=== PATIENT | male | born 1970 | race Caucasian/White ===

== ENCOUNTER 2019-07-08 12:56 | Emergency (ER) | payer SELFPAY ==
[2019-07-08 13:18] VITALS: BP 157/78; PULSE 95; RESP 18; TEMP 36.9; O2SAT 100
[2019-07-08] MEDS: hydrOXYzine pamoate 25 MG CAPSULE PO (13:58)
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
--- NOTE | 2019-07-08 14:40 | PC.NURSE ---
spoke with Bridgett in Care Management. she gave me the Mobile Crisis outreach team number. . i spoke to Selvin at the OT, Selvin spoke directly to the patient. pt agreed to follow up by phone call with OT so they can help. pt also agreed to a safety contract. pt has been tearful. ROD Brenner at bedside.
[2019-07-08 15:22] VITALS: BP 148/91; PULSE 78; RESP 16; O2SAT 98
--- NOTE | 2019-07-08 16:24 | CM.SWNOTE ---
[facility] [employer] Consult, brief note [facility] [employer] consult placed by ED provider Jordin and received; this [facility] [employer] unable to accommodate request d/t demands of the acute care caseload and prior ED case day of 20 Encouraged ED RN and staff [phone] to arrange same day phone call and possible home visit, this person lives on [address] ED staff expected Meme to be safe to return home from ED w/ [facility] f/u; no suicidal ideation or homicidal ideation; Meme admitted to racing thoughts, anxiety, and meds given before DC home per ED RN Reina Cunningham, [facility]
== END 2019-07-08 15:26 | disposition home or self-care (01) ==
PROVIDERS: Emergency Provider Nurse Practitioner Family
DX: F41.9 Anxiety disorder, unspecified (principal); F32.9 Major depressive disorder, single episode, unspecified
CPT/HCPCS: 99283; 99284

== ENCOUNTER → 2019-08-02 11:46 | Outpatient (CLI) | payer SELFPAY ==
[2019-08-02 12:45] LABS: Appearance Urine UA CLEAR; Bilirubin Urine UA NEGATIVE (NEGATIVE); Color Urine UA YELLOW; Glucose Urine UA NEGATIVE (Negative); Ketones Urine UA TRACE (NEGATIVE); Leukocyte Esterase Urine UA NEGATIVE (NEGATIVE); Nitrite Urine UA NEGATIVE (Negative); Occult Blood Urine UA NEGATIVE (Negative); Protein Urine UA NEGATIVE (Negative); Urobilinogen Urine UA 0.2 E.U./dL (0.2)
[2019-08-02 12:53] LABS: UR Morphine/Opiate cutoff 300 Negative (Negative); Ur Creatinine Normal (Normal); Ur Specific Gravity Normal (Normal); Urine Amphetamines Negative (Negative); Urine Barbiturates Negative (Negative); Urine Benzodiazepines Negative (Negative); Urine Cocaine Negative (Negative); Urine MDMA Negative (Negative); Urine Methadone Negative (Negative); Urine Methamphetamines Negative (Negative); Urine Oxycodone Negative (Negative); Urine Phencyclidine Negative (Negative); Urine Tetrahydrocannabinol Negative (Negative); Urine Tricyclic Antidepressant Negative (Negative); Urine pH Normal (Normal)
[2019-08-02 13:06] LABS: Add Manual Diff / Slide Review NO; Basophils Absolute Auto 0 /uL (0-100); Basophils Percent Auto 0.7 % (0-2); Eosinophils Absolute Auto 0 /uL (0-450); Eosinophils Percent Auto 0.5 % (2-4); Hematocrit 45.6 % (41-53); Hemoglobin 15.9 g/dL (13.5-17.5); Lymphocytes Absolute Auto 700 /uL (1100-4500); Lymphocytes Percent Auto 16.4 % (25-40); Mean Corpuscular HGB Conc 34.9 % (30-36); Mean Corpuscular Volume 91.7 fL (80-100); Monocytes Absolute Auto 300 /uL (0-900); Monocytes Percent Auto 7.5 % (3-14); Neutrophils Absolute Auto 3100 /uL (1500-7000); Neutrophils Percent Auto 74.9 % (50-75); Platelet Count 197 X10^3/uL (150-400); Red Blood Cell Count 4.97 X10^6/uL (4.5-5.9); Red Cell Distribution Width 12.8 % (11.6-14.8); White Blood Cell Count 4.2 X10^3/uL (4.5-11.0)
[2019-08-02 13:25] LABS: Alanine Aminotransferase 30 IU/L (<50); Albumin 4.9 g/dL (3.5-5.0); Albumin Globulin Ratio 1.8 (1.0-2.8); Alkaline Phosphatase 49 U/L (38-126); Aspartate Aminotransferase 27 IU/L (17-59); BUN Creatinine Ratio 17.8 (6-22); Bilirubin Total 1.3 mg/dL (0.2-1.3); Blood Urea Nitrogen 16 mg/dL (9-20); Calcium 9.9 mg/dL (8.4-10.2); Carbon Dioxide 28 mmol/L (22-32); Chloride 103 mmol/L (98-107); Estimated Glomerular Filt Rate > 60.0 mL/min (>60); Globulin 2.8 g/dL (1.7-4.1); Glucose 122 mg/dL (70-100); HEMOLYSIS < 15 (0-50); Potassium 3.8 mmol/L (3.4-5.1); Sodium 143 mmol/L (137-145); Total Protein 7.7 g/dL (6.3-8.2)
[2019-08-02 13:39] LABS: Free T4, Direct Thyroxine 0.81 ng/dL (0.78-2.19)
[2019-08-02 13:53] LABS: Thyroid Stimulating Hormone 1.03 uIU/mL (0.47-4.68)
== END ==
PROVIDERS: Referring Provider Psychiatry & Neurology Psychiatry; Visit Provider Psychiatry & Neurology Psychiatry
DX: F33.2 Major depressive disorder, recurrent severe without psychotic features (principal)
CPT/HCPCS: 36415; 80053; 80305; 81003; 84439; 84443; 85025

== ENCOUNTER → 2019-10-31 10:33 | Outpatient (CLI) | payer OTHER, MEDICAID, SELFPAY ==
--- NOTE | 2019-10-31 | DI.US.S_ITS ---
PROCEDURE: US ABDOMEN COMPLETE INDICATIONS: LLQ PAIN TECHNIQUE: Real-time scanning was performed of the abdominal and retroperitoneal organs, with image documentation. COMPARISON: None. FINDINGS: Liver: Liver is normal in size and homogeneous in echotexture diffusely hyperechoic consistent with fatty infiltration. Gallbladder: 3 mm gallbladder polyp. No calculus identified. Biliary ducts: Intrahepatic bile ducts are non-dilated. Extrahepatic bile duct caliber measures 3.6 mm. Normal is 6-7 mm or less in diameter, or 10 mm or less post-cholecystectomy. Pancreas: Visualized portions of the pancreas are sonographically normal. Spleen: Spleen is enlarged in size at 15.3 cm craniocaudad and homogeneous in echotexture. Kidneys: Kidneys are normal in size and echotexture. Right kidney measures 11.4 cm long; left kidney measures 10.6 cm long. No hydronephrosis or nephrolithiasis. No solid masses. Aorta: Visualized aorta is normal in caliber at less than 3 cm. Iliacs: Proximal common iliac arteries are normal in caliber at less than 2.5 cm. IVC: Intrahepatic inferior vena cava is patent. Miscellaneous: No free abdominal fluid. IMPRESSION: The liver is not cirrhotic in appearance, but is hyperechoic in echotexture, consistent with fatty infiltration area and etiology of hepatic steatosis is not identified. Splenomegaly, 15.3 cm craniocaudad, etiology uncertain. No ascites found. Incidental note is made of a 3 mm polyp within the gallbladder lumen. Dictated by: Jericho Ayala M.D. on 10/31/2019 at 11:55 Approved by: Jericho Ayala M.D. on 10/31/2019 at 11:57
== END ==
PROVIDERS: Referring Provider Family Medicine; Visit Provider Family Medicine
DX: R10.32 Left lower quadrant pain (principal); R16.1 Splenomegaly, not elsewhere classified; K82.4 Cholesterolosis of gallbladder
CPT/HCPCS: 76700

== ENCOUNTER → 2021-05-29 10:12 | Outpatient (CLI) | payer OTHER, MEDICAID, SELFPAY | PROVIDERS: Family Provider Family Medicine; PCP Family Medicine; Referring Provider Physician Assistant; Visit Provider Physician Assistant | DX: S61.219A Laceration without foreign body of unspecified finger without damage to nail, initial encounter (principal) | CPT/HCPCS: 87070; 87075; 87205 ==

== ENCOUNTER → 2021-06-03 08:47 | Outpatient (CLI) | payer OTHER, MEDICAID, SELFPAY | PROVIDERS: Family Provider Family Medicine; PCP Family Medicine; Referring Provider Physician Assistant; Visit Provider Family Medicine | DX: S61.202A Unspecified open wound of right middle finger without damage to nail, initial encounter (principal); R55 Syncope and collapse | CPT/HCPCS: 11042; 99204; 99213 ==

== ENCOUNTER → 2021-12-09 09:27 | Outpatient (CLI) | payer OTHER, MEDICAID, SELFPAY ==
[2021-12-09 19:12] LABS: Add Manual Diff / Slide Review NO; Basophils Absolute Auto 0 /uL (0-100); Eosinophils Absolute Auto 100 /uL (0-450); Eosinophils Percent Auto 1.5 % (2-4); Hematocrit 46.6 % (41-53); Hemoglobin 16.1 g/dL (13.5-17.5); Lymphocytes Absolute Auto 1200 /uL (1100-4500); Lymphocytes Percent Auto 24.6 % (25-40); Mean Corpuscular HGB Conc 34.6 % (30-36); Mean Corpuscular Hemoglobin 31.9 PG (26-34); Mean Corpuscular Volume 92.2 fL (80-100); Monocytes Absolute Auto 400 /uL (0-900); Monocytes Percent Auto 9.1 % (3-14); Neutrophils Absolute Auto 3000 /uL (1500-7000); Neutrophils Percent Auto 63.8 % (50-75); Platelet Count 194 X10^3/uL (150-400); Red Blood Cell Count 5.05 X10^6/uL (4.5-5.9); Red Cell Distribution Width 12.8 % (11.6-14.8); White Blood Cell Count 4.8 X10^3/uL (4.5-11.0)
[2021-12-10 07:39] LABS: Fecal Immunochemical Test Negative (Negative)
== END ==
PROVIDERS: Family Provider Family Medicine; PCP Family Medicine; Visit Provider Physician Assistant
DX: R10.2 Pelvic and perineal pain (principal); R10.30 Lower abdominal pain, unspecified; R19.8 Other specified symptoms and signs involving the digestive system and abdomen
CPT/HCPCS: 82274; 85025

== ENCOUNTER 2021-12-09 19:20 | Emergency (ER) | payer OTHER, SELFPAY ==
[2021-12-09 19:24] VITALS: BP 147/92; PULSE 90; RESP 18; TEMP 36.7; O2SAT 98
[2021-12-09 20:17] VITALS: PULSE 81; O2SAT 98
[2021-12-09 20:18] VITALS: BP 146/90; PULSE 76; O2SAT 98
[2021-12-09 20:30] VITALS: BP 131/76; PULSE 68; O2SAT 96
--- NOTE | 2021-12-09 20:52 | DI.US.S_ITS ---
PROCEDURE: US SCROTUM INDICATIONS: PAIN RIGHT TESTICLE TECHNIQUE: Real-time scanning was performed of the scrotum and testicles, with image documentation. Color and pulse Doppler interrogation was performed of both testicles. COMPARISON: None. FINDINGS: Right: Testicle measures 4.7 x 2 x 2.6 cm and appears homogenous in echotexture. Epididymis is normal in overall size and morphology. There is a small right epididymal cyst or spermatocele measuring up to 0.3 x 0.2 x 0.3 cm. No hydrocele or varicoceles. Overlying scrotal skin is normal in thickness. Left: Testicle measures up to 4.8 x 2.3 x 2.7 cm and appears homogeneous in echotexture. Epididymis is normal in overall size and morphology. There is a small epididymal cyst or spermatocele measuring up to 0.2 x 0.2 x 0.2 cm. No hydrocele or varicoceles. Overlying scrotal skin is normal in thickness. Doppler: Color and pulse Doppler demonstrate normal and symmetric arterial flow in both testicles. IMPRESSION: 1. No evidence of torsion or other definite acute abnormality. 2. Bilateral small epididymal head cysts or spermatoceles. Dictated by: Emil Castrejon M.D. on 12/10/2021 at 1:07 Approved by: Emil Castrejon M.D. on 12/10/2021 at 1:09
--- NOTE | 2021-12-09 21:00 | ED.MALEGU ---
HPI - Male Genitourinary General Chief complaint: Abdominal Pain Stated complaint: lower abd, groin pain Time Seen by Provider: 12/09/21 20:21 Source: patient Mode of arrival: Ambulatory History of Present Illness HPI Narrative: Patient is a 51-year-old male who presents with 1 week of right testicular pain and discomfort. He sometimes has some suprapubic pain after urination as well. 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 He was seen over on read the [facility] for evaluation they did blood work and sent him over here for ultrasound. He denies any swelling. He says he has not had intercourse for 10 years but 3 weeks ago had relations with a new partner. He denies any painful or frequent urination. No penile discharge. He has pain posterior of his at times. fever or chills Related Data Previous Rx's Medication Instructions Recorded citalopram 20 mg tablet 20 mg PO DAILY #90 tabs 12/26/20 omeprazole 20 mg capsule,delayed 20 mg PO DAILY #30 caps 11/03/21 release Allergies Allergy/AdvReac Type Severity Reaction Status Date / Time No Known Drug Allergies Allergy Verified 02/06/21 14:42 Review of Systems Review of Systems Narrative: GENERAL: Denies chills,fever HEENT: Denies throat pain RESPIRATORY: Denies dyspnea, cough, wheezing CARDIOVASCULAR: Denies chest pain, palpitations GASTROINTESTINAL: Denies nausea, vomiting : See HPI MUSCULOSKELETAL: Denies extremity pain, injury SKIN: No rash, no laceration, no pruritus NEUROLOGIC: Denies weakness, dizziness, headache, numbness 8 point review of systems is negative except for those stated above and HPI Patient History Medical History Chronic cough Dyslipidemia Essential hypertension Fatty liver Mood disorder Palpitations Precordial pain Pure hypercholesterolemia, unspecified Rash of face Splenomegaly Social History Smoking Status: Former smoker Smoking Status: Former smoker alcohol intake frequency: 0-2 drinks per day Substance Use Type: does not use Exam Initial Vital Signs Initial Vital Signs: Vital Signs Temperature 98.1 F 12/09/21 19:24 Pulse Rate 90 12/09/21 19:24 Respiratory Rate 18 12/09/21 19:24 Blood Pressure 147/92 H 12/09/21 19:24 Pulse Oximetry 98 12/09/21 19:24 Oxygen Delivery Method 12/09/21 19:24 GENERAL: Well-appearing, well-nourished and in no acute distress. CARDIOVASCULAR: peripheral pulses in tact, cap refill <2 sec RESPIRATORY: No respiratory distress, speaks in full sentences without difficulty ABDOMEN: Soft, nontender, no guarding or rebound : Nurse Moiz in room for evaluation. Mild right testicular pain no significant erythema or swelling. No hernia appreciated. No gross discharge penis EXTREMITIES: Normal range of motion, no clubbing or edema. Neurovascularly intact NEUROLOGICAL: Cranial nerves II through XII grossly intact. Normal gait and speech. SKIN: Warm, dry, no petechiae, no rashes or lesions. Course Orders Ordered: ED Orders 12/09/21 20:52 US scrotum Stat 12/09/21 21:12 Chlamydia Gonorrhea PCR -URINE Stat 12/10/21 00:20 CT abdomen pelvis w con Stat Discontinued Medications Ibuprofen (Ibuprofen 400 Mg Tablet) 800 mg PO NOW ONE Stop: 12/09/21 21:04 Last Admin: 12/09/21 21:10 Dose: 800 mg Documented By: Vital Signs Vital signs: Vital Signs - 8 hr 12/09/21 19:24 12/09/21 20:17 12/09/21 20:18 Temperature 98.1 F Pulse Rate 90 81 76 Respiratory Rate 18 Blood Pressure 147/92 H Pulse Oximetry 98 98 98 Oxygen Delivery Method Room Air 12/09/21 20:18 12/09/21 20:30 12/09/21 20:30 Temperature Pulse Rate 68 Respiratory Rate Blood Pressure 146/90 H 131/76 Pulse Oximetry 96 Oxygen Delivery Method Room Air 12/10/21 02:00 Temperature Pulse Rate 60 Respiratory Rate Blood Pressure 143/89 H Pulse Oximetry 98 Oxygen Delivery Method Room Air MDM - Male Genitourinary Lab Data Labs: Lab Results 12/09/21 Range/Units 21:12 Ur Chlamydia DNA (PCR) Not detected N gonorrhoeae DNA (PCR) Not detected Urine Dip Bedside Urine Glucose Negative Bedside Urine Bilirubin - Negative Bedside Urine Ketone - Negative Urine Specific [place] 1.025 Bedside Urine Occult Blood - Negative Bedside Urine pH 6.0 Bedside Urine Protein - Negative Bedside Urine Urobilinogen +/- 1mg Bedside Urine Nitrite - Negative Bedside Urine Leukocytes - Negative Esterase Imaging Data us scrotum: Radiologist's Impression: Signed Patient: Meme Rosa MR#: [id number] : 1970 Acct:[id number] Age/Sex: 51 / M Date of Service: 12/09/21 Loc: ED Accession Number: [id number] ?? Procedure: US scrotum Ordering Provider: Nicole Rhoades D.O. PROCEDURE:? US SCROTUM ? INDICATIONS:? PAIN RIGHT TESTICLE ? TECHNIQUE:? Real-time scanning was performed of the scrotum and testicles, with image documentation.? Color and pulse Doppler interrogation was performed of both testicles.? ? COMPARISON:? None. ? FINDINGS:? ? Right:? Testicle measures 4.7 x 2 x 2.6 cm and appears homogenous in echotexture.? Epididymis is normal in overall size and morphology.? There is a small right epididymal cyst or spermatocele measuring up to 0.3 x 0.2 x 0.3 cm.? No hydrocele or varicoceles.? Overlying scrotal skin is normal in thickness.? ? Left:? Testicle measures up to 4.8 x 2.3 x 2.7 cm and appears homogeneous in echotexture. ?Epididymis is normal in overall size and morphology.? There is a small epididymal cyst or spermatocele measuring up to 0.2 x 0.2 x 0.2 cm.? No hydrocele or varicoceles.? Overlying scrotal skin is normal in thickness.? ? Doppler:? Color and pulse Doppler demonstrate normal and symmetric arterial flow in both testicles.? ? IMPRESSION:? ? 1. No evidence of torsion or other definite acute abnormality. ? 2. Bilateral small epididymal head cysts or spermatoceles. ? ? Dictated by: Emil Castrejon M.D. on 12/10/2021 at 1:07 ? ? Approved by: Emil Castrejon M.D. on 12/10/2021 at 1:09 CT scan - abdomen/pelvis: Radiologist's Impression: CT Scan Report Signed Patient: Meme Rosa MR#: [id number] : 1970 Acct:[id number] Age/Sex: 51 / M Date of Service: 12/10/21 Loc: ED Accession Number: [id number] ?? Procedure: CT abdomen pelvis w con Ordering Provider: Nicole Rhoades D.O. PROCEDURE:? CT ABDOMEN PELVIS W CON ? INDICATIONS:? rlq pain, right testicle pain ? TECHNIQUE:? After the administration of IV contrast, axial sections were acquired from the lung bases to the pubic symphysis.? Coronal and sagittal reformats were performed.? For radiation dose reduction, the following was used:? automated exposure control, adjustment of mA and/or kV according to patient size. ? COMPARISON:? [facility], SCROTUM, 12/09/2021, 21:27. ? FINDINGS:? Image quality:? Excellent.? ? Lung bases:? There is mild dependent atelectasis.? ? Heart:? Heart is normal in size. ? ? ABDOMEN: Liver:? No mass lesion. Gallbladder:? Within normal limits without calcified gallstones.? ? Biliary ducts:? No biliary ductal dilatation.? ? Pancreas:? Unremarkable.? ? Spleen:? Normal in size.? ? Adrenal Glands:? No adrenal nodules.? ? Kidneys and Ureters:? No hydronephrosis.? There is a left parapelvic renal cyst.? ? Stomach and Bowel:? Stomach, small bowel loops, and colon are normal in caliber and wall thickness.? The appendix is normal in appearance.? There are a few colonic diverticula without acute diverticulitis. Peritoneum:? No abnormal intraperitoneal fluid.? No free air.? ? Ventral Wall: ? No hernia.? Abdominal Nodes:? No retroperitoneal or mesenteric adenopathy by size criteria.? Vessels:? Aorta and inferior vena cava are normal in size.? ? PELVIS: Pelvic Organs:? Unremarkable.? ? Bladder:? Unremarkable.? ? Pelvic Nodes: No enlarged lymph nodes.? Miscellaneous:? There is a small fat-containing right inguinal hernia. ? Bones:? There is anterolisthesis of L5 on S1 measuring approximately 0.4 cm with minimally displaced bilateral pars defects.? Visualized osseous structures demonstrate no suspicious focal lesions. ? IMPRESSION:? ? 1. No evidence of appendicitis. ? 2. Small fat-containing right inguinal hernia. ? 3. Mild anterolisthesis of L5 on S1 with bilateral pars defects.? ? ? Dictated by: Emil Castrejon M.D. on 12/10/2021 at 1:21 ? ? MDM Narrative Medical decision making narrative: The patient had new sexual encounter but negative gonorrhea and chlamydia negative urine is ultrasound to come extremely long time to come back but is ultimately negative. He continued to have some suprapubic and right lower quadrant pain blood work from the [facility] is within normal limits. CT confirms that he has a small fat containing right inguinal hernia which is likely the cause of his pain and discomfort. No need for any antibiotics at this time. No need for any sort of emergent surgery. Can follow up outpatient with surgery. Discharge Plan Departure Patient Disposition: Home Clinical Impression: Hernia, inguinal, right Instructions: Groin Hernia -- Adult Activity Restrictions/Additional Instructions: *You have been diagnosed with small fat containing right inguinal hernia *What to do: You may require surgery however not emergent at this time please follow-up with surgery. *Continue to take medications as directed Ibuprofen 600 mg every 6 hours if needed for [id number] pain Tylenol 1000 mg every 6 hours if needed for [id number] *Follow up with your primary care provider in 2-3 days or call [phone] Call surgery to schedule follow-up in 1-2 weeks *Return to ER if you should have increasing pain redness fever or any new, worsening or concerning symptoms Prescriptions: No Action citalopram 20 mg tablet 20 mg PO DAILY Qty: 90 3RF omeprazole 20 mg capsule,delayed release(DR/EC) 20 mg PO DAILY Qty: 30 2RF Referrals: [facility] [Provider Group] Quinn Clark DO [Primary Care Provider] - Visit Report Forms: Patient Portal/API
[2021-12-09] MEDS: IBUPROFEN 400 MG TABLET 800 MG PO (21:10)
[2021-12-09 22:57] LABS: Urine N gonorrhoeae NOT DETECTED
[2021-12-09 22:59] LABS: Urine Chlamydia NOT DETECTED
--- NOTE | 2021-12-10 00:20 | DI.CT.S_ITS ---
PROCEDURE: CT ABDOMEN PELVIS W CON INDICATIONS: rlq pain, right testicle pain TECHNIQUE: After the administration of IV contrast, axial sections were acquired from the lung bases to the pubic symphysis. Coronal and sagittal reformats were performed. For radiation dose reduction, the following was used: automated exposure control, adjustment of mA and/or kV according to patient size. COMPARISON: [facility], , US SCROTUM, 12/09/2021, 21:27. FINDINGS: Image quality: Excellent. Lung bases: There is mild dependent atelectasis. Heart: Heart is normal in size. ABDOMEN: Liver: No mass lesion. Gallbladder: Within normal limits without calcified gallstones. Biliary ducts: No biliary ductal dilatation. Pancreas: Unremarkable. Spleen: Normal in size. Adrenal Glands: No adrenal nodules. Kidneys and Ureters: No hydronephrosis. There is a left parapelvic renal cyst. Stomach and Bowel: Stomach, small bowel loops, and colon are normal in caliber and wall thickness. The appendix is normal in appearance. There are a few colonic diverticula without acute diverticulitis. Peritoneum: No abnormal intraperitoneal fluid. No free air. Ventral Wall: No hernia. Abdominal Nodes: No retroperitoneal or mesenteric adenopathy by size criteria. Vessels: Aorta and inferior vena cava are normal in size. PELVIS: Pelvic Organs: Unremarkable. Bladder: Unremarkable. Pelvic Nodes: No enlarged lymph nodes. Miscellaneous: There is a small fat-containing right inguinal hernia. Bones: There is anterolisthesis of L5 on S1 measuring approximately 0.4 cm with minimally displaced bilateral pars defects. Visualized osseous structures demonstrate no suspicious focal lesions. IMPRESSION: 1. No evidence of appendicitis. 2. Small fat-containing right inguinal hernia. 3. Mild anterolisthesis of L5 on S1 with bilateral pars defects. Dictated by: Emil Castrejon M.D. on 12/10/2021 at 1:21 Approved by: Emil Castrejon M.D. on 12/10/2021 at 1:26
[2021-12-10 02:00] VITALS: BP 143/89; PULSE 60; O2SAT 98
== END 2021-12-10 02:02 | disposition home or self-care (01) ==
PROVIDERS: Emergency Provider Emergency Medicine; Family Provider Family Medicine; PCP Family Medicine
DX: K40.90 Unilateral inguinal hernia, without obstruction or gangrene, not specified as recurrent (principal); R10.31 Right lower quadrant pain
CPT/HCPCS: 74177; 76870; 81002; 81003; 82274; 85025; 87491; 87591; 99284; Q9967

== ENCOUNTER → 2022-01-26 08:06 | Outpatient (CLI) | payer OTHER, MEDICAID, SELFPAY ==
[2022-01-26 20:59] LABS: COVID-19 CEPHEID PCR (VTM/NP) Negative (Negative)
== END ==
PROVIDERS: Family Provider Family Medicine; PCP Family Medicine; Referring Provider Surgery; Visit Provider Family Medicine
DX: Z20.822 Contact with and (suspected) exposure to COVID-19 (principal)
CPT/HCPCS: U0003; U0005

== ENCOUNTER 2022-01-28 10:57 | Day surgery (SDC) | payer OTHER, MEDICAID, SELFPAY ==
[2022-01-27 08:15] VITALS: BMI 30.2
[2022-01-28] VITALS (9 sets, daily range): BP systolic 97–143; BP diastolic 62–96; PULSE 60–78; RESP 12–16; TEMP 36.2–36.9; O2SAT 94–98; BMI 30.2
[2022-01-28] MEDS: LACTATED RINGERS 1,000 ML 100 ML IV (11:24)
--- NOTE | 2022-01-28 12:48 | PM.HP.1 ---
History of Present Illness History of Present Illness Date Patient Seen: 01/28/22 Time Patient Seen: 12:48 Chief complaint: SDC Narrative: 52 y.o man with a symptomatic right inguinal hernia here for elective open repair. No interval changes in health. Refer to H&P 12/19/21 for further detail. Patient History Medical History Anxiety Chronic cough Dyslipidemia Essential hypertension Fatty liver Mood disorder Palpitations Precordial pain Pure hypercholesterolemia, unspecified Rash of face Splenomegaly Family & Social History Tobacco & Substance use: Tobacco type cigarettes Smoking Status Former smoker alcohol intake never alcohol intake frequency 0-2 drinks per day Substance Use Type does not use Meds Home Medications and Allergies Home Medications Medication Instructions Recorded Confirmed Type citalopram 20 mg tablet 20 mg PO DAILY #90 tabs 12/26/20 01/28/22 Rx omeprazole 20 mg capsule,delayed 20 mg PO DAILY #30 caps 11/03/21 01/28/22 Rx release acetaminophen 325 mg capsule 650 mg PO QID PRN pain #60 caps 01/28/22 Rx (Tylenol) docusate sodium 100 mg capsule 100 mg PO BID #30 caps 01/28/22 Rx (Colace) ibuprofen 200 mg tablet 400 mg PO Q6H #60 tabs 01/28/22 Rx oxycodone 5 mg tablet 5 mg PO Q6H PRN pain #30 tabs 01/28/22 Rx Allergies Allergy/AdvReac Type Severity Reaction Status Date / Time No Known Drug Allergies Allergy Verified 01/28/22 11:22 Exam Vital Signs (past 8 hours): - 01/28/22 11:12 Temperature 98.4 F Pulse Rate 78 Respiratory Rate 15 Blood Pressure 143/96 H Pulse Oximetry 98 Oxygen Delivery Method Room Air Oxygen Delivery Method Room Air Narrative Exam Narrative: Gen-Adult man alert and oriented Abdomen-Right inguinal hernia marked with my initials. Assessment & Plan Assessment and plan (1) Right inguinal hernia: Status: Acute Assessment & Plan narrative: 52 y.o man with a symptomatic right inguinal hernia here for elective open repair. Site is marked with my initials Operative risks including bleeding, infection, reoccurence, damage to surrounding structures discussed. Questions answered and he is in agreement with this plan. Time Spent With Patient Critical Care time: I spent a total of [] minutes of critical care time on this patient's care today; this time is exclusive of procedural time.
[2022-01-28] MEDS: CEFAZOLIN 2 GM IN 0.9 % NACL 100 ML IV (13:25)
--- NOTE | 2022-01-28 13:56 | SUR.OPER ---
PATIENTS GLASSES AND CELL PHONE PLACED IN PATIENT BELONGINGS BAG IN PRE-OP AREA.
[2022-01-28] MEDS: BUPIVACAINE 0.25% (PF) VIAL 30 ML INJ (14:01)
--- NOTE | 2022-01-28 14:34 | P.OP_ITS ---
Operative Date/Time/Diagnoses Date of procedure: 01/28/22 Time of procedure: 14:34 Pre-op diagnosis: Right inguinal hernia Post-op diagnosis: same Procedure & Clinicians Procedure: Open right inguinal hernia repair with mesh Same procedure as scheduled: Yes Indications: Symptomatic reducible right inguinal hernia Surgeon: Kameron Vann Yes if Unassisted: Yes Operative Notes Findings: Indirect defect only. No direct floor defect. Specimen(s): none sent Estimated Blood Loss (mL): 20 Procedure in detail: The patient was placed supine on the table and bilateral lower extremity compression devices were applied. Anesthesia was induced they were intubated with an LMA and received Ancef. A time-out was performed. They were prepped and draped in sterile fashion. The right external inguinal ring and the anterior superior iliac crest were identified and marked. 1 finger breath above the inguinal ligament the skin was infiltrated with 0.25% bupivacaine. The skin incision was made here and the subcutaneous tissues were divided with electrocautery exposing the external oblique aponeurosis which was then opened along the direction of its fibers. Using blunt dissection the internal oblique aporneurosis was from the external oblique upper leaflet to identify the iliohypogastric nerve. Using a kittner the cord was carefully dissected away from the inguinal canal adjacent to the pubic tubercle. The cord including the vas deferens, testicular bloody supply, ilioguinal and genital nerve were en circled with a Thompson drain. No direct floor defect was identified. The cremasteric fibers surrounding the cord were divided using electrocautery adjacent to the internal ring.. The vas deferens and the testicular vessels were preserved and protected. There was a small indirect hernia on the anterior medial aspect of the cord which was skeletonized away from the vas deferens and testicular blood supply. The indirect hernia was skeletonized back to the internal ring and reduced spontaneously into the abdomen. I selected a 7x 15 cm lightweight Pro Loop hernia mesh. The inferior medial aspect of the mesh was anchored to insertion of the rectus muscle to the pubic tubercle such that there was approximately 2 cm of tubercle overlap with Ethibond and then was run continuously along the inferior edge of the mesh to the shelving edge of the inguinal ligament. Interrupted 3 0 Vicryl suture was used to anchor the superior aspect of the mesh to the conjoined tendon in several places. The tails were then reapproximated loosely around the spermatic cord. The tails of the mesh were then tucked under the external oblique aponeurosis. The repair was checked for hemostasis. The wound was irrigated with sterile saline. The external oblique aponeurosis was reapproximated in a running fashion using 3 0 Vicryl. The subcutaneous tissues were reapproximated with 3 0 Vicryl skin closed with 4 0 Monocryl followed by the application of Dermabond. At the end of the operation I ensured that both testicles were within the scrotum. The sponge instrument count at the end operation was correct. The patient emerged from anesthesia was extubated and transferred to the postoperative care unit in stable condition. A total of 30 ml of of 0.25% bupivicaine was used to infiltrate the skin. Complications: none Post-operative Condition: stable Disposition: same day surgery
--- NOTE | 2022-01-28 15:14 | SUR.PHASEI ---
1510 Pt transferred to [facility]. SBAr report to [facility]. Pt only complaint of sore throat, tolerating ice chips. No difficulty breathing. Lungs clear.
== END 2022-01-28 15:48 | disposition home or self-care (01) ==
PROVIDERS: Family Provider Family Medicine; PCP Family Medicine; Referring Provider Surgery; Visit Provider Surgery
PROC: (CPT 49505; principal; 2022-01-28 13:45)
DX: K40.90 Unilateral inguinal hernia, without obstruction or gangrene, not specified as recurrent (principal); F41.9 Anxiety disorder, unspecified
CPT/HCPCS: 49505; J0690; J1100; J1885; J2250; J2405; J2704; J3010

== ENCOUNTER → 2022-10-29 14:24 | Outpatient (CLI) | payer OTHER, MEDICAID, SELFPAY ==
[2022-10-29 20:07] LABS: Add Manual Diff / Slide Review NO; Basophils Absolute Auto 0 /uL (0-100); Basophils Percent Auto 0.7 % (0-2); Eosinophils Absolute Auto 100 /uL (0-450); Eosinophils Percent Auto 1.8 % (2-4); Hematocrit 42.9 % (41-53); Hemoglobin 15.2 g/dL (13.5-17.5); Lymphocytes Absolute Auto 1500 /uL (1100-4500); Lymphocytes Percent Auto 27.2 % (25-40); Mean Corpuscular HGB Conc 35.5 % (30-36); Mean Corpuscular Volume 90.2 fL (80-100); Monocytes Absolute Auto 500 /uL (0-900); Monocytes Percent Auto 8.8 % (3-14); Neutrophils Absolute Auto 3400 /uL (1500-7000); Neutrophils Percent Auto 61.5 % (50-75); Platelet Count 189 X10^3/uL (150-400); Red Blood Cell Count 4.76 X10^6/uL (4.5-5.9); Red Cell Distribution Width 12.7 % (11.6-14.8); White Blood Cell Count 5.6 X10^3/uL (4.5-11.0)
[2022-10-29 20:23] LABS: Alanine Aminotransferase 110 IU/L (<50); Albumin 4.2 g/dL (3.5-5.0); Albumin Globulin Ratio 1.8 (1.0-2.8); Alkaline Phosphatase 58 U/L (38-126); Aspartate Aminotransferase 55 IU/L (17-59); BUN Creatinine Ratio 17.2 (6-22); Bilirubin Total 0.7 mg/dL (0.2-1.3); Blood Urea Nitrogen 17 mg/dL (9-20); Calcium 9.1 mg/dL (8.4-10.2); Carbon Dioxide 29 mmol/L (22-32); Chloride 107 mmol/L (98-107); Estimated Glomerular Filt Rate > 60 mL/min (>60); Globulin 2.4 g/dL (1.7-4.1); Glucose 92 mg/dL (70-100); HEMOLYSIS < 15 (0-50); Sodium 141 mmol/L (137-145); Total Protein 6.6 g/dL (6.3-8.2)
[2022-11-02 13:49] LABS: Interpretation Negative (Negative)
== END ==
PROVIDERS: Family Provider Family Medicine; PCP Family Medicine; Visit Provider Physician Assistant Medical
DX: K21.9 Gastro-esophageal reflux disease without esophagitis (principal); R05.9 Cough, unspecified
CPT/HCPCS: 80053; 83013; 85025

== ENCOUNTER → 2023-04-08 10:39 | Outpatient (CLI) | payer OTHER, MEDICAID, SELFPAY ==
[2023-04-12 16:29] LABS: Fecal Immunochemical Test Negative (Negative)
== END ==
PROVIDERS: Family Provider Family Medicine; PCP Family Medicine; Visit Provider Physician Assistant Medical
DX: R74.8 Abnormal levels of other serum enzymes (principal); K21.9 Gastro-esophageal reflux disease without esophagitis; R12 Heartburn; R05.3 Chronic cough
CPT/HCPCS: 82274

== ENCOUNTER → 2023-04-19 10:46 | Outpatient (CLI) | payer OTHER, MEDICAID, SELFPAY ==
--- NOTE | 2023-04-19 10:54 | DI.RAD.S_ITS ---
PROCEDURE: XR SINUS <3V INDICATIONS: chronic cough/throat irritation TECHNIQUE: 3 views of the sinuses were acquired. COMPARISON: None. FINDINGS: Sinuses: The visualized sinuses demonstrate no air-fluid levels. The visualized mastoids also appear clear. Bones: No suspicious bony lesions. Nasal septum is midline. IMPRESSION: No air-fluid levels are seen within the paranasal sinuses. The paranasal sinuses appear clear radiographically. Dictated by: Tin Romo M.D. on 04/19/2023 at 12:23 Approved by: Tin Romo M.D. on 04/19/2023 at 12:23
[2023-04-19 11:49] LABS: Add Manual Diff / Slide Review NO; Basophils Absolute Auto 100 /uL (0-100); Basophils Percent Auto 0.9 % (0-2); Eosinophils Absolute Auto 100 /uL (0-450); Eosinophils Percent Auto 1.7 % (2-4); Hematocrit 48.4 % (41-53); Hemoglobin 16.8 g/dL (13.5-17.5); Lymphocytes Absolute Auto 1500 /uL (1100-4500); Mean Corpuscular HGB Conc 34.8 % (30-36); Mean Corpuscular Hemoglobin 31.3 PG (26-34); Mean Corpuscular Volume 90.1 fL (80-100); Monocytes Absolute Auto 600 /uL (0-900); Monocytes Percent Auto 9.7 % (3-14); Neutrophils Absolute Auto 3500 /uL (1500-7000); Neutrophils Percent Auto 60.7 % (50-75); Platelet Count 204 X10^3/uL (150-400); Red Blood Cell Count 5.37 X10^6/uL (4.5-5.9); Red Cell Distribution Width 12.9 % (11.6-14.8); White Blood Cell Count 5.7 X10^3/uL (4.5-11.0)
[2023-04-19 12:01] LABS: Alanine Aminotransferase 100 IU/L (<50); Albumin 4.7 g/dL (3.5-5.0); Albumin Globulin Ratio 1.5 (1.0-2.8); Alkaline Phosphatase 44 U/L (38-126); Aspartate Aminotransferase 47 IU/L (17-59); BUN Creatinine Ratio 21.3 (6-22); Bilirubin Total 0.9 mg/dL (0.2-1.3); Blood Urea Nitrogen 20 mg/dL (9-20); Calcium 9.7 mg/dL (8.4-10.2); Carbon Dioxide 29 mmol/L (22-32); Chloride 102 mmol/L (98-107); Estimated Glomerular Filt Rate > 60 mL/min (>60); Gamma Glutamyl Transpeptidase 23 U/L (15-73); Globulin 3.2 g/dL (1.7-4.1); Glucose 106 mg/dL (70-100); HEMOLYSIS < 15 (0-50); Sodium 141 mmol/L (137-145); Total Protein 7.9 g/dL (6.3-8.2)
--- NOTE | 2023-04-19 12:30 | DI.US.S_ITS ---
PROCEDURE: US ABDOMEN COMPLETE INDICATIONS: ELEVATED LIVER ENZYMES TECHNIQUE: Real-time scanning was performed of the abdominal and retroperitoneal organs, with image documentation. COMPARISON: [facility], , US ABDOMEN COMPLETE, 10/31/2019, 10:55. FINDINGS: Liver: Mild hepatomegaly as before. Diffusely echogenic hepatic echotexture without focal mass lesions. Gallbladder: Gallbladder is normal in sonographic appearance without gallstones, gallbladder wall thickening, pericholecystic fluid, or abnormal sonographic Torres's. Previously described gallbladder polyp is not visualized on today's examination. Biliary ducts: Intrahepatic bile ducts are non-dilated. Extrahepatic bile duct caliber measures 3 mm. Normal is 6-7 mm or less in diameter, or 10 mm or less post-cholecystectomy. Pancreas: Pancreas is not visualized on today's study secondary to bowel gas. Spleen: Mild splenomegaly. Spleen measures up to 14.4 cm in maximum dimension. Kidneys: Kidneys are normal in size and echotexture. Right kidney measures 10.4 cm long; left kidney measures 11.4 cm long. No hydronephrosis or nephrolithiasis. No solid masses. Aorta: Visualized aorta is normal in caliber at less than 3 cm. Iliacs: Proximal common iliac arteries are normal in caliber at less than 2.5 cm. IVC: Inferior vena cava not visualized secondary to overlying bowel gas. Miscellaneous: No free abdominal fluid. IMPRESSION: Mild hepatosplenomegaly with findings consistent with diffuse hepatic steatosis. No focal intrahepatic abnormality seen. Dictated by: Michael Wen M.D. on 04/19/2023 at 14:35 Approved by: Michael Wen M.D. on 04/19/2023 at 15:01
== END ==
PROVIDERS: Family Provider Family Medicine; PCP Family Medicine; Referring Provider Physician Assistant Medical; Visit Provider Physician Assistant Medical
DX: J02.9 Acute pharyngitis, unspecified (principal); R05.3 Chronic cough; R16.2 Hepatomegaly with splenomegaly, not elsewhere classified; R12 Heartburn; R74.8 Abnormal levels of other serum enzymes; K21.9 Gastro-esophageal reflux disease without esophagitis
CPT/HCPCS: 36415; 70210; 76700; 80053; 82977; 85025

== ENCOUNTER → 2023-04-30 14:45 | Outpatient (CLI) | payer OTHER, MEDICAID, SELFPAY | PROVIDERS: Family Provider Family Medicine; PCP Family Medicine; Referring Provider Physician Assistant Medical; Visit Provider Physician Assistant Medical | DX: R05.9 Cough, unspecified (principal); Z87.891 Personal history of nicotine dependence | CPT/HCPCS: 94060; 94726; 94729 ==

== ENCOUNTER 2023-08-11 15:03 | Emergency (ER) | payer OTHER, MEDICAID, SELFPAY ==
[2023-08-11] VITALS (10 sets, daily range): BP systolic 144–171; BP diastolic 78–108; PULSE 69–92; RESP 14–24; TEMP 36.8; O2SAT 95–99; BMI 29.5
--- NOTE | 2023-08-11 15:14 | DI.RAD.S_ITS ---
PROCEDURE: XR CHEST 1V INDICATIONS: chest pain TECHNIQUE: One view of the chest was acquired. COMPARISON: [facility] ([place]), CR, XR CHEST 2V, 04/02/2023, 16:42. FINDINGS: Surgical changes and devices: None. Lungs and pleura: Lungs are clear. No pleural effusions or pneumothorax. Mediastinum: Mediastinal contours appear normal. Heart size is normal. Bones and chest wall: No suspicious bony lesions. Overlying soft tissues appear unremarkable. IMPRESSION: No acute cardiopulmonary abnormality is seen. Dictated by: Yakov Jimenez M.D. on 08/11/2023 at 16:02 Approved by: Yakov Jimenez M.D. on 08/11/2023 at 16:02
[2023-08-11] MEDS: ASPIRIN 81 MG CHEW TAB 324 MG PO (15:19)
[2023-08-11 15:33] LABS: Add Manual Diff / Slide Review NO; Basophils Absolute Auto 100 /uL (0-100); Eosinophils Absolute Auto 100 /uL (0-450); Eosinophils Percent Auto 1.2 % (2-4); Hematocrit 45.7 % (41-53); Hemoglobin 16.1 g/dL (13.5-17.5); Lymphocytes Absolute Auto 1200 /uL (1100-4500); Lymphocytes Percent Auto 23.2 % (25-40); Mean Corpuscular HGB Conc 35.3 % (30-36); Mean Corpuscular Hemoglobin 31.9 PG (26-34); Mean Corpuscular Volume 90.3 fL (80-100); Monocytes Absolute Auto 600 /uL (0-900); Monocytes Percent Auto 10.7 % (3-14); Neutrophils Absolute Auto 3400 /uL (1500-7000); Neutrophils Percent Auto 63.9 % (50-75); Platelet Count 191 X10^3/uL (150-400); Red Blood Cell Count 5.06 X10^6/uL (4.5-5.9); Red Cell Distribution Width 12.7 % (11.6-14.8); White Blood Cell Count 5.3 X10^3/uL (4.5-11.0)
[2023-08-11 15:40] LABS: INR 1.1 (0.9-1.3); Prothrombin Time 12.6 SECONDS (9.4-12.5)
[2023-08-11 15:43] LABS: PTT Partial Thromboplastin Tim 35 SECONDS (25.1-36.5)
[2023-08-11 15:48] LABS: Alanine Aminotransferase 135 IU/L (<50); Albumin 4.7 g/dL (3.5-5.0); Albumin Globulin Ratio 1.5 (1.0-2.8); Alkaline Phosphatase 56 U/L (38-126); Aspartate Aminotransferase 59 IU/L (17-59); BUN Creatinine Ratio 17.8 (6-22); Bilirubin Total 1.3 mg/dL (0.2-1.3); Blood Urea Nitrogen 16 mg/dL (9-20); Calcium 9.4 mg/dL (8.4-10.2); Carbon Dioxide 27 mmol/L (22-32); Chloride 102 mmol/L (98-107); Creatine Kinase 278 U/L (55-170); Estimated Glomerular Filt Rate > 60 mL/min (>60); Globulin 3.1 g/dL (1.7-4.1); Glucose 82 mg/dL (70-100); HEMOLYSIS 15 (0-50); Lipase 49 U/L (23-300); Potassium 3.6 mmol/L (3.4-5.1); Sodium 142 mmol/L (137-145); Total Protein 7.8 g/dL (6.3-8.2)
[2023-08-11 15:59] LABS: Troponin I < 0.012 ng/mL (0.01-0.034)
--- NOTE | 2023-08-11 16:05 | ED.CHESTPAIN ---
HPI - Chest Pain General Chief Complaint: Chest Pain Stated Complaint: Chest pain and pressure palpitations Time Seen by Provider: 08/11/23 15:23 Source: patient Mode of arrival: Ambulatory Limitations: no limitations History of Present Illness HPI narrative: Patient is a 53-year-old male history of hypertension hyperlipidemia chronic cough and anxiety presenting today with chest discomfort. He reports that he has had palpitations and some chest pain off and on for couple of months. He has eliminated coffee he does not drink alcohol. He reports that he is palpitations every night when he lays down. He does not notice it during the daytime or with exertion. He has some pressure on the left side of his chest. It is really non radiating. He denies any shortness of breath with exertion. His father of an OR at the age of 58. He has had a stress test a couple years ago and [place] he was told it was normal. He has also had a Holter monitor in the past and told it was normal as well. He does not feel dizzy or lightheaded. He his primary a couple months ago for this [place] to [place] ED and get checked out. His symptoms are not any worse today than they have been previously. He has no fever chills or cough. Related Data Previous Rx's Medication Instructions Recorded dextromethorphan-guaifenesin 5 10 ml PO Q8H PRN cough #237 mL 10/08/22 mg-100 mg/5 mL oral liquid (Robitussin Honey Max DM) omeprazole 20 mg capsule,delayed 20 mg PO DAILY #30 caps 10/09/22 release citalopram 20 mg tablet 20 mg PO DAILY #90 tabs 12/17/22 fluticasone propionate 50 1 spray intranasal BID #16 grams 04/12/23 mcg/actuation nasal spray,suspension (Flonase Allergy Relief) Allergies Allergy/AdvReac Type Severity Reaction Status Date / Time No Known Drug Allergies Allergy Verified 05/07/23 12:34 Patient History Medical History Anxiety Chronic cough Dyslipidemia Essential hypertension Fatty liver Mood disorder Palpitations Precordial pain Pure hypercholesterolemia, unspecified Rash of face Splenomegaly Social History Smoking Status: Former smoker alcohol intake: never Smoking Status: Former smoker alcohol intake frequency: 0-2 drinks per day Substance Use Type: does not use Exam Initial Vital Signs Initial Vital Signs: Vital Signs Temperature 98.3 F 08/11/23 15:11 Pulse Rate 92 H 08/11/23 15:11 Respiratory Rate 18 08/11/23 15:11 Blood Pressure 159/93 H 08/11/23 15:11 Pulse Oximetry 99 08/11/23 15:11 Oxygen Delivery Method Room Air 08/11/23 15:11 GENERAL: Alert 53-year-old male and in no acute distress. HEENT: Head atraumatic,EOMI, pupils reactive, face symmetric, moist mucous membranes CARDIOVASCULAR: Regular rate and rhythm without murmurs, rubs or gallops. Nontender nonreproducible RESPIRATORY: Breath sounds equal bilaterally, no wheezes rales or rhonchi. ABDOMEN: Soft, nontender. Normoactive bowel sounds all 4 quadrants. No guarding or rebound. : No CVA tenderness EXTREMITIES: Normal range of motion, no clubbing or edema. Neurovascularly intact NEUROLOGICAL: Alert and oriented x4. SKIN: Warm, dry, no laceration, no petechiae, no rashes or lesions. Scores HEART Score Heart Score history: Slightly Suspicious Heart Score EKG: Normal Heart Score Age: 45-64 years old Heart Score risk factors: 1-2 risk factors Heart Score troponin: < or = to normal limit Heart Score Total: 2 Course Orders Ordered: ED Orders 08/11/23 15:14 XR chest 1V Stat EKG-12 Lead Stat 08/11/23 15:18 Complete Blood Count AUTO DIFF Stat Comprehensive Metabolic Panel Stat Lipase Stat Magnesium Stat PTT Partial Thromboplastin Júnior Stat Prothrombin Time INR Stat Troponin & CK Cardiac Panel Stat Discontinued Medications Aspirin (Aspirin 81 Mg Chew Tab) 324 mg PO NOW ONE Stop: 08/11/23 15:15 Last Admin: 08/11/23 15:19 Dose: 324 mg Documented By: ADDI Vital Signs Vital signs: Vital Signs - 8 hr 08/11/23 15:11 08/11/23 15:23 08/11/23 15:26 Temperature 98.3 F Pulse Rate 92 H 81 74 Respiratory Rate 18 14 17 Blood Pressure 159/93 H Pulse Oximetry 99 99 98 Oxygen Delivery Method Room Air 08/11/23 15:26 08/11/23 15:30 08/11/23 15:30 Temperature Pulse Rate 72 Respiratory Rate 19 Blood Pressure 151/108 H 165/99 H Pulse Oximetry 96 Oxygen Delivery Method 08/11/23 15:45 08/11/23 15:46 08/11/23 15:46 Temperature Pulse Rate 74 69 Respiratory Rate 16 15 Blood Pressure 150/86 H Pulse Oximetry 97 95 Oxygen Delivery Method 08/11/23 16:00 08/11/23 16:00 08/11/23 16:15 Temperature Pulse Rate 70 80 Respiratory Rate 24 24 Blood Pressure 144/78 H Pulse Oximetry 95 99 Oxygen Delivery Method 08/11/23 16:16 08/11/23 16:16 08/11/23 16:30 Temperature Pulse Rate 75 Respiratory Rate 22 Blood Pressure 171/90 H 152/92 H Pulse Oximetry 97 Oxygen Delivery Method 08/11/23 16:30 Temperature Pulse Rate 69 Respiratory Rate 21 Blood Pressure Pulse Oximetry 96 Oxygen Delivery Method MDM - Chest Pain Lab Data 08/11/23 15:18 08/11/23 15:18 Labs: Lab Results 08/11/23 Range/Units 15:18 WBC 5.3 (4.5-11.0) X10^3/uL RBC 5.06 (4.5-5.9) X10^6/uL Hgb 16.1 (13.5-17.5) g/dL Hct 45.7 (41-53) % MCV 90.3 (80-100) fL MCH 31.9 (26-34) PG MCHC 35.3 (30-36) % RDW 12.7 (11.6-14.8) % Plt Count 191 (150-400) X10^3/uL Neut % (Auto) 63.9 (50-75) % Lymph % (Auto) 23.2 L (25-40) % [place] % (Auto) 10.7 (3-14) % Eos % (Auto) 1.2 L (2-4) % Baso % (Auto) 1.0 (0-2) % Neut # (Auto) 3400 (6748-1695) /uL Lymph # (Auto) 1200 (0374-1189) /uL [place] # (Auto) 600 (0-900) /uL Eos # (Auto) 100 (0-450) /uL Baso # (Auto) 100 (0-100) /uL PT 12.6 H (9.4-12.5) SECONDS INR 1.1 (0.9-1.3) APTT 35 (25.1-36.5) SECONDS Sodium 142 (137-145) mmol/L Potassium 3.6 (3.4-5.1) mmol/L Chloride 102 (98-107) mmol/L Carbon Dioxide 27 (22-32) mmol/L BUN 16 (9-20) mg/dL Creatinine 0.90 (0.66-1.25) mg/dL Estimated GFR > 60 (>60) mL/min BUN/Creatinine Ratio 17.8 (6-22) Glucose 82 (70-100) mg/dL Calcium 9.4 (8.4-10.2) mg/dL Magnesium 2.0 (1.6-2.3) mg/dL Total Bilirubin 1.3 (0.2-1.3) mg/dL AST 59 (17-59) IU/L ALT 135 H (<50) IU/L Alkaline Phosphatase 56 (38-126) U/L Total Creatine Kinase 278 H (55-170) U/L Troponin I < 0.012 (0.01-0.034) ng/mL Total Protein 7.8 (6.3-8.2) g/dL Albumin 4.7 (3.5-5.0) g/dL Globulin 3.1 (1.7-4.1) g/dL Albumin/Globulin Ratio 1.5 (1.0-2.8) Lipase 49 (23-300) U/L Imaging Data Chest x-ray: Radiologist's Impression: PROCEDURE: XR CHEST 1V INDICATIONS: chest pain TECHNIQUE: One view of the chest was acquired. COMPARISON: [facility] ([facility], CR, XR CHEST 2V, 04/02/2023, 16:42. FINDINGS: Surgical changes and devices: None. Lungs and pleura: Lungs are clear. No pleural effusions or pneumothorax. Mediastinum: Mediastinal contours appear normal. Heart size is normal. Bones and chest wall: No suspicious bony lesions. Overlying soft tissues appear unremarkable. IMPRESSION: No acute cardiopulmonary abnormality is seen. Dictated by: Yakov Jimenez M.D. on 08/11/2023 at 16:02 ECG Data Attestation: I personally reviewed and interpreted this ECG as follows: Prior ECG tracings: available for review Interpretation: Normal sinus rhythm rate 78 WA interval 184 QRS [address] changes no T-wave inversions MDM Narrative Medical decision making narrative: Patient 53-year-old male history of some anxiety presenting today with ongoing chest pain and palpitations. Reports that it has been there for a couple of weeks or months it has not any worse today. He experiences palpitations more at night. He has been in sinus rhythm on the monitor while in the ED. Blood work has been reviewed no clinical significant abnormalities Chest x-ray reviewed no acute cardiopulmonary process At this time patient is having palpitations and ongoing chest discomfort for a number of weeks or months not worse today. He has a low risk heart score. I do recommend that he have further outpatient cardiac testing his father of an OR at an early age. However heart score is low and this can be done as an outpatient Discharge Plan Departure Patient Disposition: Home Clinical Impression: Palpitations, Atypical chest pain Instructions: DI for Atypical Chest Pain, DI for Palpitations Activity Restrictions/Additional Instructions: *You have been diagnosed with palpitations and atypical chest pain *What to do: At this time I do recommend further outpatient workup including Holter monitor echocardiogram and stress test *Continue to take medications as directed *Follow up with your primary care provider in 2-3 days or call [phone] *Return to ER if you should have dizziness lightheadedness worsening chest pain shortness of breath or any new, worsening or concerning symptoms Prescriptions: No Action citalopram 20 mg tablet 20 mg PO DAILY Qty: 90 3RF omeprazole 20 mg capsule,delayed release(DR/EC) 20 mg PO DAILY Qty: 30 1RF fluticasone propionate [Flonase Allergy Relief] 50 mcg/actuation spray,suspension 1 spray intranasal BID Qty: 16 2RF Rx Instructions: administer into each nostril Robitussin Honey Max DM 5-100 mg/5 mL liquid 10 ml PO Q8H PRN (Reason: cough) Qty: 237 0RF Referrals: Tanya Garcia PA-C [Primary Care Provider] - Stand Alone Forms: Patient Portal/API
== END 2023-08-11 16:45 | disposition home or self-care (01) ==
PROVIDERS: Emergency Provider Emergency Medicine; Family Provider Family Medicine; PCP Physician Assistant Medical
DX: R07.89 Other chest pain (principal); R00.2 Palpitations; F33.2 Major depressive disorder, recurrent severe without psychotic features; F42.9 Obsessive-compulsive disorder, unspecified
CPT/HCPCS: 36415; 71045; 80053; 82550; 83690; 83735; 84484; 85025; 85610; 85730; 93005; 99214; 99284

== ENCOUNTER → 2023-08-27 08:34 | Outpatient (CLI) | payer OTHER, MEDICAID, SELFPAY ==
[2023-08-27 18:55] LABS: Cholesterol 177 mg/dL (140-199); HDL Cholesterol 28 mg/dL (40-60); LDL Cholesterol Calculated 112 mg/dL (<100); Triglycerides 187 mg/dL (35-150)
[2023-08-27 18:59] LABS: Alanine Aminotransferase 138 IU/L (<50); Albumin 4.3 g/dL (3.5-5.0); Albumin Globulin Ratio 1.6 (1.0-2.8); Alkaline Phosphatase 59 U/L (38-126); Aspartate Aminotransferase 57 IU/L (17-59); BUN Creatinine Ratio 18.2 (6-22); Bilirubin Total 1.2 mg/dL (0.2-1.3); Blood Urea Nitrogen 16 mg/dL (9-20); Calcium 9.4 mg/dL (8.4-10.2); Carbon Dioxide 28 mmol/L (22-32); Chloride 108 mmol/L (98-107); Estimated Glomerular Filt Rate > 60 mL/min (>60); Globulin 2.7 g/dL (1.7-4.1); Glucose 111 mg/dL (70-100); HEMOLYSIS 16 (0-50); Potassium 3.9 mmol/L (3.4-5.1); Sodium 142 mmol/L (137-145)
[2023-08-27 19:14] LABS: Free T3, Triiodothyronine Free 4.04 pg/mL (2.77-5.27)
[2023-08-27 19:28] LABS: TSH w/ Reflex to FT4 1.56 uIU/mL (0.47-4.68)
== END ==
PROVIDERS: Family Provider Family Medicine; PCP Physician Assistant Medical; Visit Provider Physician Assistant
DX: Z13.6 Encounter for screening for cardiovascular disorders (principal); R74.8 Abnormal levels of other serum enzymes; J02.9 Acute pharyngitis, unspecified
CPT/HCPCS: 80053; 80061; 84443; 84481

== ENCOUNTER → 2023-11-03 11:14 | Outpatient (CLI) | payer OTHER, MEDICAID, SELFPAY ==
--- NOTE | 2023-11-03 11:16 | DI.CT.S_ITS ---
PROCEDURE: CT ABDOMEN PELVIS W CON INDICATIONS: right lower abdominal and inguinal pain f/u hernia repair TECHNIQUE: After the administration of intravenous contrast, axial sections acquired from the lung bases to the pubic symphysis during Valsalva maneuver. Coronal and sagittal reformats were performed. For radiation dose reduction, the following was used: automated exposure control, adjustment of mA and/or kV according to patient size. COMPARISON: [facility], CT, CT ABDOMEN PELVIS W CON, 12/10/2021, 0:25. FINDINGS: Lower thorax: The lung bases are clear. Heart size normal. No hiatal hernia. Liver: The liver is diffusely decreased in attenuation without focal mass lesion. Biliary system: No calcified cholelithiasis or pericholecystic inflammation. No intra or extrahepatic bile duct dilatation. Pancreas: Unremarkable without mass or inflammation evident. Spleen: The spleen is enlarged at 13.3 cm. No intrinsic mass lesion. Adrenals: Normal morphology and density. Reproductive system: Unremarkable as visualized. Urinary system: Normal renal size and attenuation. No renal calculi, hydronephrosis, or solid mass present. Urinary bladder unremarkable. Gastrointestinal system: The bowel is unremarkable without evidence of bowel obstruction or inflammation. The stomach appears unremarkable. Appendix: Normal appendix identified. No evidence of appendicitis. Peritoneal spaces: No mesenteric or retroperitoneal adenopathy. No free air. No free fluid. Vasculature: The IVC, aorta and iliac vasculature are unremarkable. Abdominal wall: Abdominal wall intact without evidence of ventral or inguinal hernias. Musculoskeletal: Grade 1 anterior spondylolisthesis at L5-S1 associated with bilateral L5 pars defects IMPRESSION: 1. No evidence of recurrence or residual inguinal hernias. 2. Chronic findings as above Approved by: Kamron Godoy M.D. on 11/03/2023 at 15:43
== END ==
PROVIDERS: Family Provider Family Medicine; PCP Physician Assistant Medical; Referring Provider Physician Assistant; Visit Provider Physician Assistant
DX: R10.31 Right lower quadrant pain (principal); R16.1 Splenomegaly, not elsewhere classified; M43.17 Spondylolisthesis, lumbosacral region; Z98.890 Other specified postprocedural states; Z87.19 Personal history of other diseases of the digestive system
CPT/HCPCS: 74177; Q9967

== ENCOUNTER → 2024-03-21 09:52 | Outpatient (CLI) | payer OTHER, MEDICAID, SELFPAY ==
[2024-03-21 19:52] LABS: Add Manual Diff / Slide Review NO; Basophils Absolute Auto 0 /uL (0-100); Basophils Percent Auto 0.2 % (0-2); Eosinophils Absolute Auto 100 /uL (0-450); Eosinophils Percent Auto 1.5 % (2-4); Hematocrit 44.4 % (41-53); Hemoglobin 15.7 g/dL (13.5-17.5); Lymphocytes Absolute Auto 1100 /uL (1100-4500); Lymphocytes Percent Auto 26.7 % (25-40); Mean Corpuscular HGB Conc 35.3 % (30-36); Mean Corpuscular Volume 90.6 fL (80-100); Monocytes Absolute Auto 400 /uL (0-900); Monocytes Percent Auto 8.9 % (3-14); Neutrophils Absolute Auto 2700 /uL (1500-7000); Neutrophils Percent Auto 62.7 % (50-75); Platelet Count 164 X10^3/uL (150-400); Red Cell Distribution Width 12.7 % (11.6-14.8); White Blood Cell Count 4.3 X10^3/uL (4.5-11.0)
[2024-03-21 19:56] LABS: Alanine Aminotransferase 67 IU/L (<50); Albumin 4.4 g/dL (3.5-5.0); Albumin Globulin Ratio 1.7 (1.0-2.8); Alkaline Phosphatase 56 U/L (38-126); Aspartate Aminotransferase 38 IU/L (17-59); BUN Creatinine Ratio 20.5 (6-22); Bilirubin Total 1.1 mg/dL (0.2-1.3); Blood Urea Nitrogen 18 mg/dL (9-20); Calcium 9.6 mg/dL (8.4-10.2); Carbon Dioxide 29 mmol/L (22-32); Chloride 105 mmol/L (98-107); Cholesterol 203 mg/dL (140-199); Estimated Glomerular Filt Rate > 60 mL/min (>60); Globulin 2.6 g/dL (1.7-4.1); Glucose 111 mg/dL (70-100); HDL Cholesterol 31 mg/dL (40-60); HEMOLYSIS 17 (0-50); LDL Cholesterol Calculated 113 mg/dL (<100); Sodium 140 mmol/L (137-145); Triglycerides 294 mg/dL (35-150)
[2024-03-21 20:20] LABS: TSH w/ Reflex to FT4 1.75 uIU/mL (0.47-4.68)
== END ==
PROVIDERS: Family Provider Family Medicine; PCP Physician Assistant Medical; Visit Provider Physician Assistant Medical
DX: F41.9 Anxiety disorder, unspecified (principal); R10.9 Unspecified abdominal pain; R12 Heartburn; R00.2 Palpitations; K21.9 Gastro-esophageal reflux disease without esophagitis
CPT/HCPCS: 80053; 80061; 84443; 85025

== ENCOUNTER → 2024-04-26 09:03 | Outpatient (CLI) | payer OTHER, MEDICAID, SELFPAY ==
[2024-04-26 20:45] LABS: Alanine Aminotransferase 31 IU/L (<50); Albumin 4.4 g/dL (3.5-5.0); Albumin Globulin Ratio 1.7 (1.0-2.8); Alkaline Phosphatase 50 U/L (38-126); Aspartate Aminotransferase 28 IU/L (17-59); BUN Creatinine Ratio 17.3 (6-22); Blood Urea Nitrogen 17 mg/dL (9-20); Calcium 9.8 mg/dL (8.4-10.2); Carbon Dioxide 30 mmol/L (22-32); Chloride 102 mmol/L (98-107); Cholesterol 191 mg/dL (140-199); Estimated Glomerular Filt Rate > 60 mL/min (>60); Globulin 2.6 g/dL (1.7-4.1); Glucose 102 mg/dL (70-100); HDL Cholesterol 40 mg/dL (40-60); HEMOLYSIS < 15 (0-50); LDL Cholesterol Calculated 130 mg/dL (<100); Potassium 4.1 mmol/L (3.4-5.1); Sodium 138 mmol/L (137-145); Triglycerides 106 mg/dL (35-150)
== END ==
PROVIDERS: Family Provider Family Medicine; PCP Physician Assistant Medical; Visit Provider Physician Assistant Medical
DX: E78.00 Pure hypercholesterolemia, unspecified (principal)
CPT/HCPCS: 80053; 80061

== ENCOUNTER → 2024-05-23 11:00 | Outpatient (CLI) | payer OTHER, MEDICAID, SELFPAY ==
[2024-05-25 11:36] LABS: Fecal Immunochemical Test Positive (Negative)
== END ==
PROVIDERS: Family Provider Family Medicine; PCP Physician Assistant Medical; Visit Provider Family Medicine
DX: Z12.5 Encounter for screening for malignant neoplasm of prostate (principal); E78.2 Mixed hyperlipidemia; R73.9 Hyperglycemia, unspecified; R74.8 Abnormal levels of other serum enzymes
CPT/HCPCS: 82274

== ENCOUNTER → 2024-07-22 13:54 | Outpatient (CLI) | payer OTHER, SELFPAY ==
--- NOTE | 2024-07-22 13:55 | DI.CT.S_ITS ---
PROCEDURE: CT ABDOMEN PELVIS W CON INDICATIONS: Enlarged spleen TECHNIQUE: After the administration of intravenous contrast, axial sections acquired from the lung bases to the pubic symphysis. Coronal and sagittal reformats were performed. For radiation dose reduction, the following was used: automated exposure control, adjustment of mA and/or kV according to patient size. COMPARISON: [facility], CT, CT ABDOMEN PELVIS W CON, 12/10/2021, 0:25. [facility], CT, CT ABDOMEN PELVIS W CON, 11/03/2023, 11:45. FINDINGS: Image quality: Diagnostic. Lower Chest: No significant findings. ABDOMEN: Liver: No solid mass. Tiny cyst at the dome. Gallbladder: No radiopaque gallstones or wall thickening. Biliary ducts: No biliary dilation. Pancreas: No ductal dilation. Spleen: Measures 14.2 cm, (3), unchanged, and more remotely 14 cm in 2021. Adrenal Glands: No adrenal nodules. Kidneys and Ureters: No hydronephrosis. No solid mass. No complex renal cystic lesion which requires follow up. Stomach and Bowel: Normal colonic caliber, without significant wall thickening. Diverticulosis. No diverticulitis. Normal appendix. No small bowel obstruction. Stomach is within normal limits. Peritoneum: No abnormal intraperitoneal fluid. No free air. Ventral Wall: No significant ventral hernia. Abdominal Nodes: No retroperitoneal or mesenteric adenopathy by size criteria. Vessels: Aorta and inferior vena cava are normal in size. Calcified atherosclerotic plaque. PELVIS: Pelvic Organs: Prominent prostate gland. Bladder: No bladder wall thickening, accounting for underdistention. Pelvic Nodes: No enlarged lymph nodes. Miscellaneous: No inguinal hernias are seen. Bones: No aggressive osseous abnormality. Bilateral L5 pars defect. Anterolisthesis of L5 on S1 measuring 0.7 cm. IMPRESSION: 1. Mild splenomegaly is unchanged. 2. No adenopathy. No free fluid. Dictated by: Abrahan Clarke M.D. on 07/23/2024 at 17:56 Approved by: Abrahan Clarke M.D. on 07/23/2024 at 18:02
== END ==
PROVIDERS: Family Provider Family Medicine; PCP Physician Assistant Medical; Referring Provider Physician Assistant; Visit Provider Physician Assistant
DX: R16.1 Splenomegaly, not elsewhere classified (principal); M43.17 Spondylolisthesis, lumbosacral region
CPT/HCPCS: 74177; Q9967

== ENCOUNTER → 2024-07-31 09:06 | Outpatient (CLI) | payer OTHER, SELFPAY ==
[2024-07-31 20:01] LABS: HEMOLYSIS < 15 (0-50); Iron 114 ug/dL (49-181)
[2024-07-31 20:10] LABS: Alanine Aminotransferase 29 IU/L (<50); Albumin 4.8 g/dL (3.5-5.0); Albumin Globulin Ratio 1.8 (1.0-2.8); Alkaline Phosphatase 53 U/L (38-126); Aspartate Aminotransferase 31 IU/L (17-59); BUN Creatinine Ratio 15.5 (6-22); Bilirubin Total 1.2 mg/dL (0.2-1.3); Blood Urea Nitrogen 18 mg/dL (9-20); Calcium 9.7 mg/dL (8.4-10.2); Carbon Dioxide 29 mmol/L (22-32); Chloride 102 mmol/L (98-107); Cholesterol 236 mg/dL (140-199); Estimated Glomerular Filt Rate > 60 mL/min (>60); Globulin 2.6 g/dL (1.7-4.1); Glucose 92 mg/dL (70-100); HDL Cholesterol 40 mg/dL (40-60); HEMOLYSIS < 15 (0-50); LDL Cholesterol Calculated 170 mg/dL (<100); Potassium 3.8 mmol/L (3.4-5.1); Sodium 139 mmol/L (137-145); Total Protein 7.4 g/dL (6.3-8.2); Triglycerides 131 mg/dL (35-150)
[2024-07-31 20:12] LABS: Percent Iron Saturation 39 % (20-50); Total Iron Binding Capacity 289 ug/dL (261-462); Transferrin 268 mg/dL (206-381)
[2024-07-31 20:39] LABS: Ferritin 365 ng/mL (18-464)
[2024-08-02 00:36] LABS: HBsAg Screen Negative (Negative); Hepatitis A Antibody IgM Negative (Negative); Hepatitis B Core Antibody IgM Negative (Negative); Hepatitis C Antibody Non Reactive (Non Reactive)
== END ==
PROVIDERS: Family Provider Family Medicine; Referring Provider Family Medicine; Visit Provider Family Medicine
DX: Z12.5 Encounter for screening for malignant neoplasm of prostate (principal); E78.2 Mixed hyperlipidemia; R73.9 Hyperglycemia, unspecified; R74.8 Abnormal levels of other serum enzymes; R25.2 Cramp and spasm
CPT/HCPCS: 80053; 80061; 80074; 82728; 83540; 83550; G0103

== ENCOUNTER 2024-09-08 07:18 | Day surgery (SDC) | payer OTHER, SELFPAY ==
--- NOTE | 2024-09-08 | PATH_ITS ---
[facility] Accession Number: [id number] No. of containers..01 Tissue . 01 Material submitted: . colon - POLYP @ 25CM . 01 Diagnosis: COLON POLYP AT 25 CM: Serrated lesion, cannot exclude sessile serrated adenoma. MRV 09/12/2024 1720 Local . 01 Electronically signed: . Alphonso Cheek MD, PhD, Pathologist NPI- [id number] . 01 Gross description: . POLYP @ 25CM: Received in formalin are 3 fragment(s) of henry, soft tissue measuring 0.6 x 0.6 x 0.4 cm to 1.5 x 0.3 x 0.3 cm submitted entirely in 1 cassette(s) /YANNA 09/12/2024 0014 Local . 01 Pathologist provided ICD-10: D12.6 . 01 CPT . 925023 Specimen Comment: A courtesy copy of this report has been sent to [facility]ology Performed at: [address] [address], [place], [place] [id number] MD Emil Tran MD Phone: [phone]
[2024-09-08 07:41] VITALS: BP 137/86; PULSE 82; RESP 18; TEMP 36.5; O2SAT 99
--- NOTE | 2024-09-08 08:31 | PM.HP.IH.1 ---
History of Present Illness History of Present Illness Date Patient Seen: 09/08/24 Time Patient Seen: 08:31 Chief complaint: Colonoscopy Narrative: Positive FIT in setting of constipated bowel movement recommended for scope. mother hx cancer unknown type. PFSH Medical History Anxiety Chronic cough Splenomegaly Fatty liver Dyslipidemia Essential hypertension Palpitations Precordial pain Pure hypercholesterolemia, unspecified Mood disorder Rash of face Social History Smoking Status: Former smoker alcohol intake: never additional social history: father of CVA at 63 yo pt does not smoke or drink pt eats sugar and bread lost 10 # in month due to diet change has changed diet taking fish oil stopped soda had myocardial stress test 04/2024: nl plan: cont diet and exercise-- rechk in 3 months -- hold statin Meds Home Medications and Allergies Home Medications Medication Instructions Recorded Confirmed Type citalopram 20 mg tablet 20 mg PO DAILY #90 tabs 04/17/24 09/08/24 Rx Allergies Allergy/AdvReac Type Severity Reaction Status Date / Time No Known Drug Allergies Allergy Verified 09/08/24 07:37 Review of Systems Review of Systems ROS: Yes All systems reviewed with the patient and are negative except as otherwise documented Exam Vital Signs (past 8 hours): - 09/08/24 07:41 Temperature 97.7 F Pulse Rate 82 Respiratory Rate 18 Blood Pressure 137/86 Pulse Oximetry 99 Oxygen Delivery Method Room Air Oxygen Delivery Method Room Air Narrative Exam Narrative: NAD, AAOX3, abdomen benign. HENMT Head: normal to inspection Objective ECG Impression: positive FIT, for colonoscopy Assessment & Plan Assessment & Plan narrative: positive FIT. plan for colonoscopy today. Time-Based Coding :: [TOTAL MINUTES] spent with patient and on the chart (including review of chart, obtaining history, exam, reviewing outside data, placing orders, documenting exam and treatment plan, and counseling patient) on [DATE]. 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
[2024-09-08 09:54] VITALS: BP 95/54; PULSE 68; RESP 14; TEMP 36.2; O2SAT 94
--- NOTE | 2024-09-08 09:56 | PM.OP.COLON ---
Operative Date/Time/Diagnoses Date of procedure: 09/08/24 Time of procedure: 09:56 Pre-op diagnosis: Positive fecal test Post-op diagnosis: same Procedure & Clinicians Study performed: Colonoscopy Same procedure as scheduled: Yes Indications: Positive fecal occult test Surgeon: Ron Bell Procedure Notes SCOAP/Timeout: Time-out performed Procedure in detail: Patient seen in the preop area, H and P updated, positive fecal occult testing.? Patient reported prep was adequate. ? Patient brought back to procedure room, time-out was performed verifying correct patient procedure.? He was given sedation. ? External rectal exam was performed with no identified fissures, or external hemorrhoids significance.? ? Digital rectal exam performed with no masses or blood. ? Colonoscope placed, colon insufflated, adequacy of prep was adequate but not perfect. Some hard stool in the cecum ?the scope was passed without difficulty to the cecum, verified by identification of the tinea. ? The scope was withdrawn with circumferential view of the colon, areas occluded by bowel prep or cleaned as much as possible.? 2 small sessile polyps were identified at 25 cm identified upon removal of the scope.? These were removed with cold biopsy and collected in a specimen cup. The area was visualized to be hemostatic. The scope was retroflexed in the rectum and grade 1 internal hemorrhoids were identified ?air was withdrawn from the colon, scope was withdrawn, and the patient was brought to the recovery area in stable condition. Scope withdrawal time: 10min Findings: polyp(s) Specimen(s): other (Two sessile polyps, cold biopsy, a 25 cm from anus sent for path) Post-procedure Recommendations: Colonoscopy in 1 year, Low residue diet and High fiber diet Plan for aftercare: Avoid aspirin for 1 week, you may notice some small amount of blood per rectum from the biopsy sites. Recommend follow up colonoscopy to evaluate for further polyps in 1-3 years Follow up: as needed Disposition: PACU
[2024-09-08 10:00] VITALS: BP 93/56; PULSE 67; RESP 15; O2SAT 95
[2024-09-08 10:05] VITALS: BP 96/65; PULSE 71; RESP 18; TEMP 36.2; O2SAT 95
[2024-09-08 10:10] VITALS: BP 108/70; PULSE 69; RESP 16; TEMP 36.2; O2SAT 96
[2024-09-08 10:13] VITALS: BP 114/68; PULSE 66; RESP 16; TEMP 36.2; O2SAT 96
== END 2024-09-08 10:33 | disposition home or self-care (01) ==
PROVIDERS: Family Provider Family Medicine; PCP Family Medicine
DX: Z12.11 Encounter for screening for malignant neoplasm of colon (principal); R19.5 Other fecal abnormalities; K64.0 First degree hemorrhoids; D12.6 Benign neoplasm of colon, unspecified
CPT/HCPCS: 45380; J2704